=== PATIENT | male | born 1940 | race Caucasian/White ===

== ENCOUNTER 2017-03-20 07:26 | Outpatient (CLI) | payer MEDICARE, BC ==
[2017-03-20 08:16] LABS: ALT (SGPT) 23 U/L (8-55); AST (SGOT) 18 U/L (5-34); Albumin 4.1 g/dL (3.4-4.8); Alkaline Phosphatase 61 U/L (40-150); Bilirubin, Direct 0.4 mg/dL (0.1-0.3); Bilirubin, Total 1.1 mg/dL (0.2-1.2); Cardiac Risk 2.9 (Less than 4.5); Cholesterol 141 mg/dl (< 200 Desired); HDL Cholesterol 49 mg/dL (>60 Neg Risk); LDL Cholesterol, Calculated 73 mg/dL; Protein, Total 7.2 g/dL (5.8-8.1); Triglycerides 95 mg/dL (Less than 150)
== END 2017-03-20 07:27 | disposition home or self-care (01) ==
LOC: MADLAB 07:26
PROVIDERS: ATTEND Internal Medicine Cardiovascular Disease
DX: R06.02 Shortness of breath (principal)
CPT/HCPCS: 36415; 80061; 80076